=== PATIENT | female | born 1990 | race Caucasian/White ===

== ENCOUNTER 2022-07-28 10:28 | Emergency (ER) | payer OTHER, SELFPAY ==
[2022-07-28 10:38] VITALS: BP 167/113; PULSE 95; RESP 16; TEMP 35.7; O2SAT 99; BMI 37.8
[2022-07-28 10:41] VITALS: BP 147/98; PULSE 95; O2SAT 100
--- NOTE | 2022-07-28 10:45 | CRLHL7_ITS ---
For Patients: As a result of the Cures Act, medical imaging exams and procedure reports are released immediately into your electronic medical record. You may view this report before your referring provider. If you have questions, please contact your health care provider. INDICATION: Fall, left lower back pain. TECHNIQUE: Three views lumbar spine. COMPARISON: None. FINDINGS: There are 5 [id number], lumbar type vertebral bodies. The vertebral body heights are maintained. No fracture is detected. There is minimal multilevel disc space narrowing and scattered small Schmorl`s nodes are present. The facet joints appear preserved. IMPRESSION: 1. No acute osseous abnormality. 2. Early degenerative spondylosis. Dictated by Shay Garcia MD @ 07/28/2022 12:17:32 PM (Electronically Signed)
--- NOTE | 2022-07-28 10:46 | ED_ITS ---
HPI - General Adult General Time Seen by Provider: 10:46 Date Seen: 07/28/22 Chief complaint: Back Injury/Pain Stated complaint: fell Time Seen by Provider: 07/28/22 10:43 Source: patient Mode of arrival: wheelchair Limitations: physical limitation History of Present Illness HPI narrative: Patient is a 29-year-old female slipped on ice fell on her left side of her back landed against the stairs has pain in her left low back. She is immune able to move her legs, no bowel or bladder changes or incontinence. She has no other injuries no loss conscious, no head ache no neck pain. Patient is otherwise fairly healthy, elevated BMI, history of anxiety IUD Related Data Home Medications Medication Instructions Recorded Confirmed buspirone 15 mg tablet 15 mg PO BID 06/02/22 07/28/22 sertraline 100 mg tablet 100 mg PO DAILY 06/02/22 07/28/22 Previous Rx's Medication Instructions Recorded dextroamphetamine-amphetamine 20 20 mg PO BID #60 tabs 06/02/22 mg tablet (Adderall) dextroamphetamine-amphetamine 20 20 mg PO BID #60 tabs 06/02/22 mg tablet (Adderall) dextroamphetamine-amphetamine 20 20 mg PO BID #60 tabs 06/02/22 mg tablet (Adderall) hydrocodone 7.5 mg-acetaminophen 1 tab PO Q8H PRN pain #14 tabs 07/28/22 325 mg tablet Allergies Allergy/AdvReac Type Severity Reaction Status Date / Time No Known Allergy Allergy Unknown Uncoded 06/02/22 11:04 Review of Systems Status of ROS: Reports: 6 or more systems reviewed and unremarkable except as noted in History and below PFSH PFSH Family History Father Attention deficit disorder with hyperactivity Brother Attention deficit disorder with hyperactivity Mother Breast cancer High blood pressure Thyroid disease Other Diabetes Social History Narrative: IUD ( intrauterine device) in place, placed September 2018 Smoker Occasional alcohol consumption Does not use illicit drugs Smoking Status: Current every day smoker How often do you have a drink containing alcohol: 2-3 times a week How many standard drinks containing alcohol do you have on a typical day: 1 or 2 How often do you have six or more drinks on one occasion: Never AUDIT-C Alcohol total score: 3 Non-prescribed substance use: denies use Exam Narrative: Exam Narrative: Objective: The patient is able to move her left lower extremity has tenderness across her left low back, vital signs look elevated due to likely discomfort. Her head and neck were unremarkable she denies back pain chest arm leg pain. She reports most her pain in her left posterior superior iliac spine area. Distal CMS is intact in lower extremities Const: Vital Signs, click to edit/add: Vital Signs - 24 hr 07/28/22 10:38 07/28/22 11:30 07/28/22 12:30 Temperature 96.3 F L Pulse Rate [Left P ulse Oximeter] 95 97 100 Respiratory Rate 16 Blood Pressure [Ri ght Upper Arm] 167/113 H 156/105 H 128/69 Pulse Oximetry 99 99 100 Oxygen Delivery Me thod Room Air Room Air Room Air 07/28/22 10:41 Temperature Pulse Rate [Left P ulse Oximeter] 95 Respiratory Rate Blood Pressure [Ri ght Upper Arm] 147/98 H Pulse Oximetry 100 Oxygen Delivery Me thod Room Air Course Vital Signs Vital signs: Initial Vital Signs Temperature 96.3 F L 07/28/22 10:38 Temperature Source Temporal Artery Scan 07/28/22 10:38 Pulse Rate 95 07/28/22 10:38 Pulse Strength 0+ Absent 07/28/22 10:38 Respiratory Rate 16 07/28/22 10:38 Blood Pressure 167/113 H 07/28/22 10:38 Blood Pressure Mean 131 07/28/22 10:38 Blood Pressure Position Supine 07/28/22 10:38 Pulse Oximetry 99 07/28/22 10:38 Oxygen Delivery Method 07/28/22 10:38 Vital Signs Temperature 96.3 F L 07/28/22 10:38 Pulse Rate 95 07/28/22 10:38 Respiratory Rate 16 07/28/22 10:38 Blood Pressure 167/113 H 07/28/22 10:38 Pulse Oximetry 99 07/28/22 10:38 Oxygen Delivery Method 07/28/22 10:38 Temperature 96.3 F L 07/28/22 10:38 Pulse Rate 100 07/28/22 12:30 Respiratory Rate 16 07/28/22 10:38 Blood Pressure 128/69 07/28/22 12:30 Pulse Oximetry 100 07/28/22 12:30 Oxygen Delivery Method 07/28/22 12:30 Medical Decision Making MDM Narrative Medical decision making narrative: Patient fell hitting her left low back. She has no radicular component to her symptoms. I think could be right velasquez to get an x-ray to rule out acute fractur e compression fracture. Patient will get IM Toradol and morphine. She has her here for driving. Disposition pending findings on x-ray Addendum: The patient's x-ray as read by Radiology is negative as well. By my read looks negative. [place] at home, Advil, ice, position of comfort will get up and move around to make she see stable. Discharge Plan Discharge Clinical Impression: Low back pain, Fall Patient Disposition: Home w/ Parent or Adult Condition: Stable Additional Instructions: Position of comfort, ice to the back 10 minutes 3 to 5 times a day, [place] as needed, Advil as needed, follow-up with primary care in 2-3 days for reassessment, light activity off work for a couple of days. Return as needed. Activity Level: Light activity Discharge Diet: Regular Prescriptions: New hydrocodone-acetaminophen 7.5-325 mg tablet 1 tab PO Q8H PRN (Reason: pain) Qty: 14 0RF No Action sertraline 100 mg tablet 100 mg PO DAILY buspirone 15 mg tablet 15 mg PO BID dextroamphetamine-amphetamine [Adderall] 20 mg tablet 20 mg PO BID Qty: 60 0RF Rx Instructions: administer doses at least 4-6 hours apart Due for an appointment for further refills dextroamphetamine-amphetamine [Adderall] 20 mg tablet 20 mg PO BID Qty: 60 0RF dextroamphetamine-amphetamine [Adderall] 20 mg tablet 20 mg PO BID Qty: 60 0RF Follow Up/Referrals: Ayleen Chisohlm PA-C [Primary Care Provider] - Stand Alone Forms: [employer]eto Info Instructions
[2022-07-28] MEDS: MORPHINE 10 MG/ML inj IM (11:12)
[2022-07-28] MEDS: KETOROLAC 60 MG/2 ML inj IM (11:13)
[2022-07-28 11:30] VITALS: BP 156/105; PULSE 97; O2SAT 99
[2022-07-28 12:30] VITALS: BP 128/69; PULSE 100; O2SAT 100
--- NOTE | 2022-07-28 12:38 | ED.NURSE ---
Pt road tested, ambulatory with mild discomfort.
== END 2022-07-28 12:50 | disposition home or self-care (01) ==
PROVIDERS: Emergency Provider Family Medicine; PCP Physician Assistant Medical
DX: M54.50 Low back pain, unspecified (principal); W00.9XXA Unspecified fall due to ice and snow, initial encounter
CPT/HCPCS: 72100; 96372; 99283; 99284; J1885; J2270

== ENCOUNTER 2023-06-04 08:26 | Emergency (ER) | payer OTHER, SELFPAY ==
[2023-06-04 08:32] VITALS: BP 152/110; PULSE 113; RESP 18; TEMP 36.9; O2SAT 99; BMI 38.8
[2023-06-04 09:00] VITALS: BP 155/92; PULSE 101; RESP 14; O2SAT 99
[2023-06-04] MEDS: predniSONE 20 MG TABLET 60 MG PO (09:16)
[2023-06-04] MEDS: diphenhydrAMINE 25 MG CAPSULE 50 MG PO (09:16)
[2023-06-04] MEDS: FAMOTIDINE 20 MG TABLET PO (09:16)
--- NOTE | 2023-06-04 09:53 | ED_ITS ---
HPI - Allergic Reaction General Date Seen: 06/04/23 Chief complaint: Allergic Reaction Stated complaint: allergic reaction Time Seen by Provider: 06/04/23 08:27 Source: patient Mode of arrival: ambulatory Limitations: no limitations History of Present Illness HPI narrative: patient is a 33-year-old female presenting to the emergency department for a rash. She says she 1st also rash on her wrist yesterday with limits she woke up today the rash is all over her body and was. The. She has never had symptoms like this before. No known allergies that she is aware of. No changes to soap s, lotions, foods, medicines or any other things that she is aware of. Denies fevers, chills, chest pain, shortness of breath, abdominal pain, nausea/vomiting, lightheadedness, dizziness. No other concerns at this time other than the rash. Related Data Previous Rx's Medication Instructions Recorded sertraline 100 mg tablet 100 mg PO QDAY #90 tabs 07/29/22 buspirone 15 mg tablet 15 mg PO BID #180 tabs 12/24/22 dextroamphetamine-amphetamine 20 20 mg PO BID #60 tabs 12/24/22 mg tablet (Adderall) dextroamphetamine-amphetamine 20 20 mg PO BID #60 tabs 12/24/22 mg tablet (Adderall) dextroamphetamine-amphetamine 20 20 mg PO BID #60 tabs 12/24/22 mg tablet (Adderall) prednisone 20 mg tablet 40 mg (2 x 20 mg) PO DAILY #10 tabs 06/04/23 Allergies Allergy/AdvReac Type Severity Reaction Status Date / Time No Known Allergy Allergy Unknown Uncoded 12/24/22 09:38 Review of Systems Status of ROS Reports: 10 or more systems reviewed and unremarkable except as noted in History and below PFSH PFSH Family History Father Attention deficit disorder with hyperactivity Brother Attention deficit disorder with hyperactivity Mother Breast cancer High blood pressure Thyroid disease Other Diabetes Social History Narrative: IUD ( intrauterine device) in place, placed September 2018 Smoker Occasional alcohol consumption Does not use illicit drugs Smoking Status: Current every day smoker How often do you have a drink containing alcohol: 2-3 times a week How many standard drinks containing alcohol do you have on a typical day: 1 or 2 How often do you have six or more drinks on one occasion: Never AUDIT-C Alcohol total score: 3 Non-prescribed substance use: denies use Little interest or pleasure in doing things: not at all Feeling down, depressed, or hopeless: not at all Exam Narrative: Exam Narrative: Const: Well-nourished, Well-developed, in mild distress Eyes: PERRL, no conjunctival injection, and symmetrical lids HENT: Atraumatic external nose and ears. Moist mucous membranes. Neck: Symmetric, trachea midline, No thyromegaly. CVS: RRR, No murmurs or gallops. Peripheral pulses 2+ and equal in all extremities RESP: Unlabored respiratory effort. Clear to auscultation bilaterally. GI: Nontender/Nondistended, No rebound or guarding. MSK:Extremities w/o deformity, Normal Active ROM Skin: Warm, Dry. Diffuse erythematous rash with mild swelling Neuro: Normal Muscle tone, No focal neurological deficits. Psych: Awake, Alert, & Oriented x3. Appropriate mood and affect. Const: Vital Signs, click to edit/add: Vital Signs - 24 hr 06/04/23 08:32 06/04/23 09:00 06/04/23 10:10 Temperature 98.4 F Pulse Rate 101 H 99 Pulse Rate [Pulse Oximeter] 113 H Respiratory Rate 18 14 14 Blood Pressure 155/92 H 155/93 H Blood Pressure [Ri ght Upper Arm] 152/110 H Pulse Oximetry 99 99 97 Oxygen Delivery Me thod Room Air Course Vital Signs Vital signs: Initial Vital Signs Temperature 98.4 F 06/04/23 08:32 Temperature Source Temporal Artery Scan 06/04/23 08:32 Pulse Rate 113 H 06/04/23 08:32 Pulse Rhythm Regular 06/04/23 08:32 Respiratory Rate 18 06/04/23 08:32 Blood Pressure 152/110 H 06/04/23 08:32 Blood Pressure Mean 124 H 06/04/23 08:32 Blood Pressure Position Sitting 06/04/23 08:32 Pulse Oximetry 99 06/04/23 08:32 Oxygen Delivery Method Room Air 06/04/23 08:32 Vital Signs Temperature 98.4 F 06/04/23 08:32 Pulse Rate 113 H 06/04/23 08:32 Respiratory Rate 18 06/04/23 08:32 Blood Pressure 152/110 H 06/04/23 08:32 Pulse Oximetry 99 06/04/23 08:32 Oxygen Delivery Method Room Air 06/04/23 08:32 Temperature 98.4 F 06/04/23 08:32 Pulse Rate 99 06/04/23 10:10 Respiratory Rate 14 06/04/23 10:10 Blood Pressure 155/93 H 06/04/23 10:10 Pulse Oximetry 97 06/04/23 10:10 Oxygen Delivery Method Room Air 06/04/23 08:32 Medications Administered Medications: Discontinued Medications Generic Name Dose Route Start Last Admin Trade Name Yoshi PRN Reason Stop Dose Admin Diphenhydramine HCl 50 mg 06/04/23 09:01 06/04/23 09:16 Diphenhydramine 25 Mg Capsule PO 06/04/23 09:02 50 mg ONCE ONE Administration Famotidine 20 mg 06/04/23 09:01 06/04/23 09:16 Famotidine 20 Mg Tablet PO 06/04/23 09:02 20 mg ONCE ONE Administration Prednisone 60 mg 06/04/23 09:01 06/04/23 09:16 Prednisone 20 Mg Tablet PO 06/04/23 09:02 60 mg ONCE ONE Administration MDM - Allergic Reaction MDM Narrative Medical decision making narrative: patient is a 3-year-old female presenting for what appears to be allergic reaction. She is tachycardic at this time but no other concerns. She has not shown any signs of anaphylaxis. There does appear to be hives all over her body. We will give her steroids, Benadryl, Pepcid. She states she has not taken any medicine for this yet. At about 2 are marked the patient started complaining about chest pain that she describes as indigestion. She was given a GI cocktail. After all the medications her symptoms have resolved and she is feeling much better at this time. She has feel safe for discharge. She will be discharged home with prednisone burst. Discharge Plan Discharge Clinical Impression: Allergic reaction Qualifiers: Encounter type: initial encounter Qualified Code(s): T78.40XA - Allergy, unspecified, initial encounter Patient Disposition: Home, Self-Care Condition: Improved Instructions: General Allergic Reaction (ED) Additional Instructions: Continues take Benadryl for the itching. Use the steroid starting on 06/05/2023. Follow-up with primary care provider symptoms persist. Return to emergency department for new or worsening symptoms Prescriptions: New prednisone 20 mg tablet 40 mg PO DAILY Qty: 10 0RF No Action dextroamphetamine-amphetamine [Adderall] 20 mg tablet 20 mg PO BID Qty: 60 0RF dextroamphetamine-amphetamine [Adderall] 20 mg tablet 20 mg PO BID Qty: 60 0RF dextroamphetamine-amphetamine [Adderall] 20 mg tablet 20 mg PO BID Qty: 60 0RF Rx Instructions: administer doses at least 4-6 hours apart buspirone 15 mg tablet 15 mg PO BID Qty: 180 3RF sertraline 100 mg tablet 100 mg PO QDAY Qty: 90 3RF Follow Up/Referrals: Ayleen Chisholm PA-C [Primary Care Provider] - Stand Alone Forms: [employer] Info Instructions
--- NOTE | 2023-06-04 10:04 | ED.NURSE ---
Complained of having heart burn. Dr Cantor informed; he did go in to see.
[2023-06-04 10:10] VITALS: BP 155/93; PULSE 99; RESP 14; O2SAT 97
--- NOTE | 2023-06-04 11:25 | ED.NURSE ---
Pt reports improvement in heartburn symptoms after GI cocktail. Redness/rash visibly improved, Pt reports significant relief.
== END 2023-06-04 11:36 | disposition home or self-care (01) ==
PROVIDERS: Emergency Provider Student in an Organized Health Care Education/Training Program; PCP Physician Assistant Medical
DX: L50.0 Allergic urticaria (principal)
CPT/HCPCS: 99283; A9270; J7512

== ENCOUNTER 2023-12-06 08:49 | Outpatient (CLI) | payer OTHER, SELFPAY | END 2023-12-06 08:50 | disposition home or self-care (01) | PROVIDERS: PCP Physician Assistant Medical; Visit Provider Physician Assistant Medical | DX: Z83.49 Family history of other endocrine, nutritional and metabolic diseases (principal); Z83.3 Family history of diabetes mellitus; Z13.228 Encounter for screening for other metabolic disorders; Z13.220 Encounter for screening for lipoid disorders; Z13.29 Encounter for screening for other suspected endocrine disorder | CPT/HCPCS: 80053; 80061; 84443 ==

== ENCOUNTER 2024-10-24 14:02 | Outpatient (CLI) | payer BC, MEDICAID, SELFPAY | END 2024-10-24 14:03 | disposition home or self-care (01) | PROVIDERS: PCP Physician Assistant Medical; Visit Provider Physician Assistant Medical | DX: R79.89 Other specified abnormal findings of blood chemistry (principal) | CPT/HCPCS: 84450; 84460 ==